=== PATIENT | female | born 1950 | race Caucasian/White ===

== ENCOUNTER 2020-11-30 09:26 | Emergency (ER) | payer MEDICARE, BC ==
[~2020-11-30] VITALS: Ht 160 cm; Wt 84.0 kg
--- NOTE | 2020-11-30 10:01 | PHYS DOC ---
Past History Past Medical History: High Cholesterol, Hypertension Past Surgical History: No Surgical History Alcohol Use: None General Adult EDM: Chief Complaint: FLANK PAIN HPI: HPI: Patient is a 70-year-old female who presented to ER for evaluation of left flank pain that radiated to her left groin area started 3 days ago. Symptom had improved then came back this morning. Patient has had history of kidney stones in the past. Patient denies any fever, no cough, no chest pain, no trouble breathing. Patient denies any blood in her urine. Patient denies any urinary frequency or urgency. Review of Systems: Review of Systems: Constitutional: Denies fever or chills Eyes: Denies change in visual acuity HENT: Denies nasal congestion or sore throat Respiratory: Denies cough or shortness of breath Cardiovascular: Denies chest pain or edema GI: Positive for left flank pain, no nausea vomiting, no diarrhea. : Denies dysuria Musculoskeletal: Denies back pain or joint pain Integument: Denies rash Neurologic: Denies headache, focal weakness or sensory changes Endocrine: Denies polyuria or polydipsia Lymphatic: Denies swollen glands Psychiatric: Denies depression or anxiety Allergies: Allergies: Allergies Coded Allergies Type Severity Reaction Last Updated Verified No Known Drug Allergies 11/30/20 No Physical Exam: PE: Constitutional: Well developed, well nourished, no acute distress, non-toxic appearance. [] HENT: Normocephalic, atraumatic, bilateral external ears normal, oropharynx moist, no oral exudates, nose normal. [] Eyes: PERRLA, EOMI, conjunctiva normal, no discharge. [] Neck: Normal range of motion, no tenderness, supple, no stridor. [] Cardiovascular:Heart rate regular rhythm, no murmur [] Lungs & Thorax: Bilateral breath sounds clear to auscultation [] Abdomen: Bowel sounds normal, soft, There is tenderness in LLQ AREA, no masses, no pulsatile masses. [] Skin: Warm, dry, no erythema, no rash. [] Back: No tenderness, Left CVA tenderness. [] Extremities: No tenderness, no cyanosis, no clubbing, ROM intact, no edema. [] Neurologic: Alert and oriented X 3, normal motor function, normal sensory function, no focal deficits noted. [] Psychologic: Affect normal, judgement normal, mood normal. [] Current Patient Data: Labs: Laboratory Tests Test 11/30/20 09:44 11/30/20 10:03 Urine Collection Type Unknown Urine Color Yellow Urine Clarity Hazy Urine pH 5.5 Urine Specific [place] >=1.030 Urine Protein 30 mg/dl Urine Glucose (UA) Neg mg/dL Urine Ketones (Stick) Neg mg/dL Urine Blood Large Urine Nitrite Neg Urine Bilirubin Neg Urine Urobilinogen Dipstick 0.2 mg/dL Urine Leukocyte Esterase Neg Urine RBC >40 /HPF Urine WBC 0 /HPF Urine Squamous Epithelial Cells Few /LPF Urine Amorphous Sediment Present /HPF Urine Bacteria 0 /HPF Urine Mucus Mod /LPF White Blood Count 9.3 x10^3/uL Red Blood Count 4.24 x10^6/uL Hemoglobin 13.6 g/dL Hematocrit 40.3 % Mean Corpuscular Volume 95 fL Mean Corpuscular Hemoglobin 32 pg Mean Corpuscular Hemoglobin Concent 34 g/dL Red Cell Distribution Width 13.0 % Platelet Count 248 x10^3/uL Neutrophils (%) (Auto) 83 % Lymphocytes (%) (Auto) 12 % Monocytes (%) (Auto) 4 % Eosinophils (%) (Auto) 0 % Basophils (%) (Auto) 1 % Neutrophils # (Auto) 7.7 x10^3uL Lymphocytes # (Auto) 1.1 x10^3/uL Monocytes # (Auto) 0.4 x10^3/uL Eosinophils # (Auto) 0.0 x10^3/uL Basophils # (Auto) 0.1 x10^3/uL Sodium Level 142 mmol/L Potassium Level 4.0 mmol/L Chloride Level 105 mmol/L Carbon Dioxide Level 27 mmol/L Anion Gap 10 Blood Urea Nitrogen 13 mg/dL Creatinine 1.2 mg/dL Estimated GFR (Cockcroft-Gault) 44.7 BUN/Creatinine Ratio 11 Glucose Level 138 mg/dL Calcium Level 9.3 mg/dL Total Bilirubin 0.6 mg/dL Aspartate Amino Transf (AST/SGOT) 19 U/L Alanine Aminotransferase (ALT/SGPT) 34 U/L Alkaline Phosphatase 74 U/L Total Protein 7.4 g/dL Albumin 3.6 g/dL Albumin/Globulin Ratio 0.9 Lipase 104 U/L Current Medications Medications (Trade) Dose Ordered Sig/Britany Route PRN Reason Start Time Stop Time Status Last Admin Dose Admin Morphine Sulfate (Morphine 4mg Syringe) 4 mg 1X ONCE IV 11/30/20 10:00 11/30/20 10:11 DC 11/30/20 10:11 Ondansetron HCl (Zofran) 4 mg 1X ONCE IVP 11/30/20 10:00 11/30/20 10:11 DC 11/30/20 10:11 Sodium Chloride 1,000 ml @ 1,000 mls/hr 1X ONCE IV 11/30/20 10:00 11/30/20 10:59 DC 11/30/20 10:10 Ketorolac Tromethamine (Toradol 30mg Vial) 30 mg 1X ONCE IVP 11/30/20 10:00 11/30/20 10:11 DC 11/30/20 10:12 Morphine Sulfate (Morphine 4mg Syringe) 4 mg 1X ONCE IV 11/30/20 11:00 11/30/20 11:21 DC 11/30/20 11:03 Tamsulosin HCl (Flomax) 0.4 mg 1X ONCE PO 11/30/20 11:00 11/30/20 11:21 DC 11/30/20 11:03 Vital Signs: Vital Signs Date Time Temp Pulse Resp B/P (MAP) Pulse Ox O2 Delivery O2 Flow Rate FiO2 11/30/20 09:34 97.6 62 16 161/74 (103) 99 Room Air EKG: EKG: [] Radiology/Procedures: Radiology/Procedures: [][place] [id number] IMAGING REPORT Signed PATIENT: ERMIAS BRENNER I ACCOUNT: [id number] : 1950 LOCATION: ER AGE: 70 SEX: F EXAM STATUS: REG ER ORD. PHYSICIAN: CADEN CLEMENTE DO REASON: left flank pain PROCEDURE: CT ABDOMEN PELVIS WO CONTRAST EXAM: CT Abdomen and Pelvis without IV contrast INDICATION: Reason: left flank pain / Spl. Instructions: / History: TECHNIQUE: Multi-detector row CT images were acquired from the lung bases through the abdomen and pelvis without the use of IV contrast. Sagittal and coronal images were acquired from the transaxial data. All CT scans performed at this facility utilize dose optimization techniques as appropriate to the exam, including the following: Automated exposure control and adjustment of the mA and/or KV according to patient size (this includes techniques or standardized protocols for targeted exams where dose is indication/reason for exam). ORAL CONTRAST: None COMPARISON: None FINDINGS: The absence of IV contrast limits evaluation of soft tissue pathology. LOWER CHEST: Unremarkable LIVER: Unremarkable BILIARY SYSTEM: Gallbladder is unremarkable. Bile ducts are not dilated. PANCREAS: Unremarkable SPLEEN: Unremarkable ADRENALS: Unremarkable KIDNEYS & URETERS: Right kidney shows multiple nonobstructing stones (at least 3) largest measuring 8 mm at the inferior pole. There is however no right hydronephrosis or perinephric soft tissue stranding and no right hydroureter or ureteral stones. Left kidney conversely shows grade 2 left hydronephrosis and hydroureter with perinephric soft tissue stranding partly tracking down the left ureter. Although no stones identified within the uterus except at the ureteral orifice (image 124 series 2), where a 2 mm stone in the distal ureter is seen , an additional 5 mm calcified stone in the urinary bladder near the left ureteral orifice is noted. BLADDER: Nearly empty. Contains a 5 mm stone as described above. No perivesical soft tissue stranding. REPRODUCTIVE ORGANS: Unremarkable GASTROINTESTINAL: The stomach, small bowel, and colon are unremarkable. The appendix is normal. MESENTERY/PERITONEUM/RETROPERITONEUM: Unremarkable VASCULAR: Unremarkable LYMPH NODES: No adenopathy OSSEOUS & SOFT TISSUES: Unremarkable IMPRESSION: There is evidence of left ureteral obstruction from distal left ureteral stones undergoing passage, with left grade 2 hydronephrosis and hydroureter with perinephric soft tissue stranding. The larger measuring 5 mm may have passed into the bladder but the smaller, measuring 2 mm, is in the distal left ureter near the orifice. Electronically signed by: Jessy Swift MD (11/30/2020 10:40 AM) [id number] DICTATED AND SIGNED BY: JESSY SWIFT MD DATE: 11/30/20 1032 CC: RHONDA JUAN DO; CADEN CLEMENTE DO ~MTH0 0 Heart Score: C/O Chest Pain: N/A Risk Factors: Risk Factors: DM, Current or recent (<one month) smoker, HTN, HLP, family history of CAD, obesity. Risk Scores: Score 0 - 3: 2.5% MACE over next 6 weeks - Discharge Home Score 4 - 6: 20.3% MACE over next 6 weeks - Admit for Clinical Observation Score 7 - 10: 72.7% MACE over next 6 weeks - Early Invasive Strategies Course & Med Decision Making: Course & Med Decision Making Pertinent Labs and Imaging studies reviewed. (See chart for details) Patient is a 70-year-old female who presented to ER due to left flank pain, CT scan show ureteral stone, mild hydronephrosis. Patient was given pain medication in ER, she feel much better. Patient was discharged home in stable condition, she will need to follow-up with urology for outpatient evaluation and treatment. Patient is amenable to plan of care. Dragon Disclaimer: Dragon Disclaimer: This electronic medical record was generated, in whole or in part, using a voice recognition dictation system. Departure Departure: Impression: Primary Impression: Kidney stone on left side Disposition: 01 DC HOME SELF CARE/HOMELESS Condition: IMPROVED Referrals: RHONDA JUAN DO (PCP) MARCI BRONSON MD PLEASE CALL THIS UROLOGIST FOR FOLLOW UP THIS WEEK Patient Instructions: Diet for Kidney Stones, Kidney Stones Additional Instructions: Thank you for visiting our Emergency Department. We appreciate you trusting us with your care. If any additional problems come up don't hesitate to return to visit us. Please follow up with your primary care provider so they can plan additional care if needed and know about the problem that you had. If symptoms worsen come back to the Emergency Department. Any concerning symptoms that start such as chest pain, shortness of air, weakness or numbness on one side of the body, running high fevers or any other concerning symptoms return to the ER. Scripts Naproxen Sodium (ANAPROX DS) 550 Mg Tablet 1 TAB PO BID PRN for PAIN for 15 Days, #30 TAB 0 Refills Prov: CADEN CLEMENTE DO 11/30/20 Ondansetron Hcl (ZOFRAN) 4 Mg Tablet 1 TAB PO Q6HRS PRN for NAUSEA, #20 TAB Prov: CADEN CLEMENTE DO 11/30/20 Tamsulosin Hcl (FLOMAX) 0.4 Mg Cap.er.24h 1 CAP PO DAILY for KIDNEY STONE, #10 CAP 11 Refills Prov: CADEN CLEMENTE DO 11/30/20 Hydrocodone/Acetaminophen (Hydrocodone-Acetamin 5-325 mg) 1 Each Tablet 1 EACH PO Q6HRS PRN for PAIN, #20 TAB Prov: CADEN CLEMENTE DO 11/30/20 CADEN CLEMENTE DO Nov 30, 2020 10:01
[2020-11-30] MEDS: IV NORMAL SALINE 1,000ML 1,000 ML IV ONE (10:10)
[2020-11-30] MEDS: MORPHINE SULFATE 4 MG/ML DISP.SYRIN. IV ONE ×2 (10:11→11:03)
[2020-11-30] MEDS: ONDANSETRON PF 4 MG/2 ML VIAL. IVP ONE (10:11)
[2020-11-30] MEDS: KETOROLAC 30 MG/ML VIAL. IVP ONE (10:12)
[2020-11-30 10:16] LABS: BASO # 0.1 x10^3/uL (0.0-0.2); BASO % 1 % (0-3); EOS % 0 % (0-3); HEMATOCRIT 40.3 % (36.0-47.0); HEMOGLOBIN 13.6 g/dL (12.0-15.5); LYMPH # 1.1 x10^3/uL (1.0-4.8); LYMPH % 12 % (24-48); MEAN CORPUSCULAR HEMOGLOBIN 32 pg (25-35); MEAN CORPUSCULAR HGB CONC 34 g/dL (31-37); MEAN CORPUSCULAR VOLUME 95 fL (79-100); MONO # 0.4 x10^3/uL (0.0-1.1); MONO % 4 % (0-9); NEUT # 7.7 x10^3uL (1.8-7.7); NEUT % 83 % (31-73); PLATELET COUNT 248 x10^3/uL (140-400); RED BLOOD COUNT 4.24 x10^6/uL (3.50-5.40); WHITE BLOOD COUNT 9.3 x10^3/uL (4.0-11.0)
[2020-11-30 10:24] LABS: CALCIUM 9.3 mg/dL (8.5-10.1); CREATININE 1.2 mg/dL (0.6-1.0); GFR 44.7
[2020-11-30 10:30] LABS: ALBUMIN 3.6 g/dL (3.4-5.0); ALBUMIN/GLOBULIN RATIO 0.9 (1.0-1.7); TOTAL BILIRUBIN 0.6 mg/dL (0.2-1.0); TOTAL PROTEIN 7.4 g/dL (6.4-8.2)
--- NOTE | 2020-11-30 10:43 | RAD ---
EXAM: CT Abdomen and Pelvis without IV contrast INDICATION: Reason: left flank pain / Spl. Instructions: / History: TECHNIQUE: Multi-detector row CT images were acquired from the lung bases through the abdomen and pel vis without the use of IV contrast. Sagittal and coronal images were acquired from the transaxial lorin a. All CT scans performed at this facility utilize dose optimization techniques as appropriate to the exam, including the following: Automated exposure control and adjustment of the mA and/or KV accordi ng to patient size (this includes techniques or standardized protocols for targeted exams where dose is indication/reason for exam). ORAL CONTRAST: None COMPARISON: None FINDINGS: The absence of IV contrast limits evaluation of soft tissue pathology. LOWER CHEST: Unremarkable LIVER: Unremarkable BILIARY SYSTEM: Gallbladder is unremarkable. Bile ducts are not dilated. PANCREAS: Unremarkable SPLEEN: Unremarkable ADRENALS: Unremarkable KIDNEYS & URETERS: Right kidney shows multiple nonobstructing stones (at least 3) largest measuring 8 mm at the inferior pole. There is however no right hydronephrosis or perinephric soft tissue stranding and no right hyd roureter or ureteral stones. Left kidney conversely shows grade 2 left hydronephrosis and hydroureter with perinephric soft tissue stranding partly tracking down the left ureter. Although no stones identified within the uterus exce pt at the ureteral orifice (image 124 series 2), where a 2 mm stone in the distal ureter is seen , an additional 5 mm calcified stone in the urinary bladder near the left ureteral orifice is noted. BLADDER: Nearly empty. Contains a 5 mm stone as described above. No perivesical soft tissue strandin g. REPRODUCTIVE ORGANS: Unremarkable GASTROINTESTINAL: The stomach, small bowel, and colon are unremarkable. The appendix is normal. MESENTERY/PERITONEUM/RETROPERITONEUM: Unremarkable VASCULAR: Unremarkable LYMPH NODES: No adenopathy OSSEOUS & SOFT TISSUES: Unremarkable IMPRESSION: There is evidence of left ureteral obstruction from distal left ureteral stones undergoing passage, w ith left grade 2 hydronephrosis and hydroureter with perinephric soft tissue stranding. The larger me asuring 5 mm may have passed into the bladder but the smaller, measuring 2 mm, is in the distal left ureter near the orifice. Electronically signed by: Robert Swift MD (11/30/2020 10:40 AM) [id number]
[2020-11-30] MEDS: TAMSULOSIN 0.4 MG CAP.ER.24H. PO ONE (11:03)
[2020-11-30 11:20] VITALS: BP 108/68
[2020-11-30] MEDS ORDERED: ONDA4TAB7 PO (11:36)
[2020-11-30] MEDS ORDERED: NAPR-682 PO (11:36)
[2020-11-30] MEDS ORDERED: HYDR-2759 PO (11:36)
[2020-11-30] MEDS ORDERED: TAMS0.4C97 PO (11:36)
== END 2020-11-30 11:46 | disposition home or self-care (01) ==
LOC: ER 09:26
DX: N13.2 Hydronephrosis with renal and ureteral calculous obstruction (principal); E78.00 Pure hypercholesterolemia, unspecified; I10 Essential (primary) hypertension; Z87.442 Personal history of urinary calculi
CPT/HCPCS: 36415; 74176; 80053; 83690; 85025; 96361; 96374; 96375; 96376; 99284; J1885; J2270; J2405; J7030